=== PATIENT | female | born 1995 | race American Indian/Alaskan Native ===

== ENCOUNTER 2018-02-24 04:16 | Emergency (ER) | payer OTHER ==
[2018-02-24] MEDS ORDERED: Bacitracin 500 Units/gm Oint Foilpak UD ONE ×2 (04:44→04:45)
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
[2018-02-24] MEDS ORDERED: Sodium Chloride 0.9% 1,000 ML IV ONE (06:08)
[2018-02-24] MEDS ORDERED: Piperacillin/Tazobact 3.375 gm 100 ML IVPB STA (06:09)
[2018-02-24] MEDS ORDERED: Vancomycin 1 GM 1 GM/250 ML BAG IVPB SCH (06:15)
[2018-02-24] MEDS ORDERED: Tetanus/Diphtheria Toxoids 0.5 ml Syringe IM ONE ×2 (06:19→06:33)
[2018-02-24 06:27] LABS: BASO % 0.5 % (0.0-2.0); EOS # 0.2 K/uL (0.0-0.7); EOS % 2.5 % (0.0-4.0); HEMOGLOBIN 14.9 g/dL (11.0-16.0); LYMPH # 1.2 K/uL (1.0-4.3); LYMPH % 13.9 % (20.0-40.0); MEAN CELL VOLUME 80.5 fL (81.0-99.0); MEAN CORPUSCULAR HEMOGLOBIN 26.9 pg (27.0-31.0); MEAN CORPUSCULAR HGB CONC 33.4 g/dL (33.0-37.0); MEAN PLATELET VOLUME 8.3 fL (7.2-11.7); MONO # 0.5 K/uL (0.0-0.8); MONO % 6.3 % (0.0-10.0); NEUT # 6.5 K/uL (1.8-7.0); NEUT % 76.8 % (50.0-75.0); NRBC % 0.1 % (0.0-2.0); RBC 5.54 Mil/uL (3.80-5.20); RED CELL DISTRIBUTION WIDTH 13.4 % (11.5-14.5); WHITE BLOOD COUNT 8.5 K/uL (4.8-10.8)
[2018-02-24] MEDS ORDERED: Sodium Chloride 0.9% 1,000 ML ONE (06:33)
[2018-02-24] MEDS ORDERED: Piperacillin/Tazobact 3.375 gm 100 ML IVPB ONE (06:33)
[2018-02-24 06:38] LABS: BLOOD UREA NITROGEN 11 mg/dL (7-17); CALCIUM 9.8 mg/dl (8.6-10.4); GFR NON-AFRICAN AMERICAN > 60
[2018-02-24 06:52] LABS: B-TYPE NATRIURETIC PEPTIDE < 11.1 pg/mL (0-450)
[2018-02-24 06:53] LABS: HCG,QUALITATIVE URINE NEGATIVE (NEGATIVE)
[2018-02-24 06:56] LABS: SQUAMOUS EPITHIAL 7 /hpf (0-5); URINE BACTERIA MANY (<OCC); URINE BILIRUBIN NEGATIVE (NEGATIVE); URINE BLOOD 2+ (NEGATIVE); URINE CLARITY Clear (Clear); URINE COLOR Yellow (YELLOW); URINE GLUCOSE (UA) NORMAL (Normal); URINE LEUKOCYTE ESTERASE 1+ Leu/uL (Negative); URINE PROTEIN 1+ mg/dL (NEGATIVE)
[2018-02-24] MEDS ORDERED: Vancomycin 1 GM 1 GM/250 ML BAG IVPB ONE (06:56)
[2018-02-24 08:13] VITALS: RESP 18; TEMP 98.5
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
[2018-02-24 09:41] VITALS: BP 118/71; PULSE 82; O2SAT 99
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
== END 2018-02-24 09:32 | disposition short-term general hospital (02) ==
LOC: C.ER 04:16
DX: S02.82XB Fracture of other specified skull and facial bones, left side, initial encounter for open fracture (principal); V49.9XXA Car occupant (driver) (passenger) injured in unspecified traffic accident, initial encounter; Y92.410 Unspecified street and highway as the place of occurrence of the external cause; Z23 Encounter for immunization
CPT/HCPCS: 70450; 70486; 72125; 73610; 80048; 81001; 83880; 84484; 84703; 85025; 86850; 86900; 90471; 90714; 96365; 96375; 99285; J2270; J2543; J3370; J7030